=== PATIENT | female | born 1940 | race Caucasian/White ===

== ENCOUNTER → 2017-05-14 | Outpatient (CLI) | payer OTHER ==
[~2017-05-14] MED LIST: ALBUTEROL2.5 MG/0.5 IH; AZITHROMYCIN500 M1 PO; CALTRATE 600 +1 EAC1 PO; CITRACAL PO; CITRACAL200 MG PO; DOXYCYCLINE HY100 MG PO; MECLIZINE HCL12.5 M1 PO; PAIN RELIEF650 MG PO; PRAVACHOL10 MG PO; PREDNISONE10 MG PO; PRILOSEC20 MG PO; PROAIR HFA8.5 GM IH; PROVENTIL,2.5 MG/3 M IH; PULMICORT FLE180 MCG IH; RESTASIS 01 DROP/0.4 BOTH EYES; SINGULAIR10 MG PO; SPIRIVA1 INHALATI IH; SYMBICORT60 INHALAT IH; TYLENOL ARTHRI650 MG PO; VENTOLIN HFA18 GM IH; VITAMIN D31000 UNIT PO; XALATAN2.5 ML BOTH EYES; XOPENEX HF200 INHALA IH; XOPENEX HFA15 GM IH; ZITHROMAX Z-PA250 MG PO
== END | disposition home or self-care (01) ==
DX: M17.12 Unilateral primary osteoarthritis, left knee (principal); R26.2 Difficulty in walking, not elsewhere classified; M25.562 Pain in left knee; M25.662 Stiffness of left knee, not elsewhere classified; M62.81 Muscle weakness (generalized)
CPT/HCPCS: 97110 GP; 97150 GO; 97161 GP; 97165 GO; G8978 GP; G8979 GP; G8980 GP; G8987 GO; G8988 GO; G8989 GO

== ENCOUNTER 2017-06-17 09:49 | Inpatient (IN) | payer OTHER ==
[~2017-06-17] VITALS: Ht 157.5 cm; Wt 65.2 kg
[2017-08-22] MEDS ORDERED: SYMBICORT60 INHALAT IH (13:52)
[2017-08-22] MEDS ORDERED: CALTRATE PLUS1 EACH PO (13:52)
[2017-08-22] MEDS ORDERED: CRANBERRY400 M1 PO (13:52)
[2017-08-22] MEDS ORDERED: VENTOLIN HFA18 GM IH (13:53)
[2017-08-22] MEDS ORDERED: PROVENTIL,2.5 MG/3 M IH (13:55)
[2017-08-26 09:22] VITALS: BP 129/61
[2017-08-26 14:27] LABS: HEMATOCRIT 39.2 % (36.0-46.0); MCH 29.3 PG (29.0-34.0); MCHC 31.9 G/DL (30.0-36.0); MCV 91.8 FL (83-99); MEAN PLAT.VOLUME 11.3 uM^3 (9.5-12.4); RBC DIS.WIDTH-CV 13.2 % (11.8-14.6); RBC DIS.WIDTH-SD 44.6 % (39-53); RED BLOOD COUNT 4.27 M/uL (3.80-5.20); WHITE BLOOD COUNT 8.5 K/uL (4.1-10.2)
[2017-08-26 14:28] LABS: PLATELET COUNT 155 K/uL (156-360)
[2017-08-26 17:30] VITALS: BP 142/67
[2017-08-26 19:35] VITALS: BP 1312/65
[2017-08-26 23:45] VITALS: BP 129/68
[2017-08-27 04:07] VITALS: BP 116/59
[2017-08-27 06:50] LABS: HEMATOCRIT 37.7 % (36.0-46.0); MCV 90.4 FL (83-99)
[2017-08-27 07:16] LABS: ANION GAP 11 MEQ/L (2-14); CHLORIDE 104 MEQ/L (99-109); GFR ESTIMATE (CALCULATED) > 59 mL/min/; GLUCOSE 111 mg/dL (70-99); POTASSIUM 3.9 MEQ/L (3.7-5.4); SAMPLE HEMOLYSIS CHECK 0; SAMPLE ICTERIC CHECK 0; SAMPLE LIPEMIA CHECK 0; SODIUM 136 MEQ/L (136-147); UREA NITROGEN (BUN) 11 mg/dL (9-23)
[2017-08-27 07:41] VITALS: BP 120/56
[2017-08-27 11:21] VITALS: BP 122/57
[2017-08-27 16:42] VITALS: BP 118/58
[2017-08-27 19:38] VITALS: BP 105/55
[2017-08-27 23:16] VITALS: BP 100/52
[2017-08-28 03:13] VITALS: BP 100/53
[2017-08-28 06:51] LABS: HEMATOCRIT 35.3 % (36.0-46.0); MCV 90.1 FL (83-99)
[2017-08-28 07:27] VITALS: BP 99/55
[2017-08-28 16:37] VITALS: BP 124/58
[2017-08-28 23:09] VITALS: BP 112/51
[2017-08-29 07:15] VITALS: BP 114/60
[2017-08-29] MEDS ORDERED: DOCUSATE SODIU100 MG PO (09:03)
[2017-08-29] MEDS ORDERED: ENDOCET 5-3251 EACH PO (09:04)
[2017-08-29] MEDS ORDERED: LOVENOX40 MG/0.4 SC (09:04)
== END 2017-08-29 13:02 | DRG 470 ==
LOC: 2SOUTH 09:49 → ENRESERV 08-25 21:10 → 2SOUTH 08-26 08:46 → 3EAST 08-26 08:46 → 2SOUTH 08-26 09:13 → ENRESERV 08-26 15:23 → 2SOUTH 08-26 16:28 → 3EAST 08-26 17:16
PROVIDERS: Orthopaedic Surgery
PROC: 0SRD0J9 Replacement of Left Knee Joint with Synthetic Substitute, Cemented, Open Approach (ICD-10-PCS; principal; 2017-08-26)
DX: M17.12 Unilateral primary osteoarthritis, left knee (principal); M47.12 Other spondylosis with myelopathy, cervical region; J45.909 Unspecified asthma, uncomplicated; K21.9 Gastro-esophageal reflux disease without esophagitis; M21.162 Varus deformity, not elsewhere classified, left knee; J44.9 Chronic obstructive pulmonary disease, unspecified; G47.62 Sleep related leg cramps; F41.9 Anxiety disorder, unspecified; E55.9 Vitamin D deficiency, unspecified; E66.3 Overweight; M81.0 Age-related osteoporosis without current pathological fracture; M47.27 Other spondylosis with radiculopathy, lumbosacral region; M41.9 Scoliosis, unspecified; Z95.0 Presence of cardiac pacemaker; Z79.51 Long term (current) use of inhaled steroids; Z85.51 Personal history of malignant neoplasm of bladder; Z85.3 Personal history of malignant neoplasm of breast; Z90.49 Acquired absence of other specified parts of digestive tract; Z90.710 Acquired absence of both cervix and uterus; Z90.11 Acquired absence of right breast and nipple; Z68.26 Body mass index [BMI] 26.0-26.9, adult
CPT/HCPCS: 71010; 73560; 80048; 85014; 85018; 85027; 94640; 94640 76; 99202; C1713; J0690; J1170; J1650; J2250; J2405; J2765; J3010; J7050